=== PATIENT | female | born 1995 | race Caucasian/White ===

== ENCOUNTER 2018-11-14 04:15 | Inpatient (IN) | payer MEDICAID, OTHER ==
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
[2018-11-14 04:59] LABS: PLATELET COUNT 297 10^3/uL (150-400)
--- NOTE | 2018-11-14 13:34 | ASMTTCLDSP ---
TLC Discharge Disposition Disposition: Answers: Admit Disposition Notes: Notes: In consultation with [facility] ED Physician, Chapo Michaels MD and on-call Clinician, Phil Parikh APN both concurred that pt appears to meet 27-65 criteria regarding psychiatric hospitalization as pt appears to be at risk of harm to self due to a mental illness condition. Pt was given the 3N prohibited belongings list while in the ED. Discharge Concerns/Recommendations: Notes[facility] the Answers: Yes Inpatient Behavioral Health Prohibited Belongings List while in the ED? For inpatient Phil Parikh APN admission, the following psychiatrist agreed to accept patient for admission to Behavioral Health ([facility]): Type of Hold: Answers: M1/72-hour Hold Hold initiated by: Answers: Police Date Signed: 11/14/2018 01:34 PM Electronically Signed By:Jackie Guillen
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
[2018-11-14] MEDS ORDERED: NICOTINE POLACRILEX 2 MG GUM B PRN (19:08)
[2018-11-14] MEDS ORDERED: ACETAMINOPHEN 325 MG TAB PO PRN (19:08)
[2018-11-14] MEDS ORDERED: MAGNESIUM HYDROXIDE 30 ML UDCUP PO PRN (19:08)
[2018-11-14] MEDS ORDERED: MAG HYDROX/AL HYDROX/SIMETH 30 ML UDCUP PO PRN (19:09)
[2018-11-14] MEDS ORDERED: LORazepam 0.5 MG TAB PO PRN (19:09)
[2018-11-14] MEDS: MELATONIN 3 MG TAB PO PRN (22:02)
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
[2018-11-15] MEDS: MELATONIN 3 MG TAB PO PRN (21:40)
--- NOTE | 2018-11-16 06:07 | PDMN ---
Medical Necessity Medical necessity: Pt meets INPT criteria per MD and [facility] ( est. LOS >2 MN for substance-induced mood disorder, alcohol-use disorder; M1 hold).
--- NOTE | 2018-11-16 15:20 | ASMTCMCOM ---
CM Note CM Note Notes: The patient completed her safety plan. She is contemplating beginning an SSRI. This automotive service writer and the provider spoke with the patient. She had a list of questions regarding medication. The patient doesn't want to take the same medication that she took in high school because it was not successful. This automotive service writer and the provider encouraged the patient to request her medical records from [place] to learn the medication she hopes to avoid. The patient also reported participating in a modality that she is concerned will interact with medication, although the patient does not know what the type of treatment was or who administered it. She plans to restart services with [facility]. The patient was encouraged to communicate with each of her outpatient providers about the various types of treatment she is receiving as well as her interest and concerns with starting an SRRI. Date Signed: 11/16/2018 03:20 PM Electronically Signed By:Sadie Mistry
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
[2018-11-17 07:05] VITALS: BP 113/79
--- NOTE | 2018-11-17 13:21 | BDS ---
REASON FOR ADMISSION: From the ED note dated 11/14/2018, the patient presents with suicidal ideation. Prior to arrival at the emergency room, the patient asked police inspector to shoot her in the head. The patient was under arrest after being involved in a likely DUI which she was the passenger. Upon being placed under arrest, the patient was very triggered and began to feel suicidal. The patient reported a history of depression and prior suicide attempt as well as history of a mental health hospitalization. The patient reported she has tried to slit her wrist in the past. The patient was admitted involuntarily on an M1 hold due to being a danger to herself. The patient was admitted for safety, crisis stabilization, and medication evaluation. ADMITTING DIAGNOSIS: Major depressive disorder, recurrent episode, severe with anxious distress. ADMISSION PHYSICAL EXAM: The patient was seen for an internal medicine consultation on 11/14/2018, for medical clearance for inpatient psychiatric hospitalization and treatment. The patient was medically cleared for inpatient psychiatric hospitalization and treatment. For further details, please refer to consultation note dated 11/14/2018. ADMISSION LABS: 1. CBC from 11/14/2018, red blood cells were low at 3.76, hemoglobin was low at 10.7, hematocrit was low at 32.2, eosinophils were low at 0.2, absolute eosinophils were low at 0.01. All other within normal limits. 2. Hemoglobin from 11/15/2018, was low at 11.3. 3. BMP from 11/14/2018, within normal limits except sodium was elevated at 147 , chloride was elevated at 115, and glucose was elevated at 109. 4. Liver function from 11/14/2018, within normal limits. 5. Beta hCG qualitative test negative from 11/14/2018. 6. Toxicology screen from 11/14/2018, negative for THC, negative for all other substances screened. Ethyl alcohol level was elevated at 229. MAJOR PROCEDURES OR TESTS: None. HOSPITAL COURSE: The most prominent symptoms and behaviors while the patient was here were reports of moderate anxiety and depression. Treatment modalities utilized were milieu and group therapy. Psychotropic medication options including antidepressants were discussed with the patient including options, risks, and benefits. The patient reports she plans to follow up on an outpatient basis for ongoing medication evaluation and possible treatment with a psychotropic medication. The patient has improved considerably with no signs of psychiatric symptoms and no psychiatric symptoms expressed at time of discharge. Patient reports she has improved since admission. States to be in stable condition, feels safe to discharge and she contracts for safety. Patient 's response to treatment was good. There were no adverse or unexpected results of treatment. The patient was safe throughout her stay, active in treatment, engaged in groups, and was appropriate with staff and other patients. The patient met with the treatment team prior to discharge to assess readiness to discharge and review discharge plan. The treatment team consensus is the patient is in stable condition, has a safe discharge plan, and is ready to discharge today. CONDITION AT DISCHARGE: Patient is in stable condition and is no longer a danger to self or others, and is not gravely disabled due to mental illness. Patient is no longer in need of inpatient level of care, and can be safely and effectively treated within the community. The patients level of risk at time of discharge is low. MSE: The patient is casually dressed and with good hygiene , and looks stated age. Patient is sitting, posture is upright, and position is relaxed. Patient appears awake, alert, and responds appropriately and reasonably during interview. Patient is engaged, relates well to interviewer, and emotional facial expression is appropriate to situation and changes appropriately with topic. Patient is cooperative, makes comfortable eye contact , and movements are voluntary, deliberate, coordinated, and smooth and even with no inappropriate movements. Patient makes laryngeal sounds effortlessly and shares conversation appropriately; pace of conversation is appropriate, and stream of talking is fluent; articulation is clear and understandable; word choice is effortless and appropriate for education level; completes sentences, occasionally pausing to think; rate and volume are appropriate for interview and setting. Patient reports mood as euthymic. Patients affect is stable with full variable range, congruent with mood, and appropriate to speech and circumstances. Patient has linear and logical thinking, with no loose associations, tangential thought, thought blocking, concrete thinking, or any other signs of formal thought disorder. Patient denies suicidal and homicidal ideation, and denies hallucinations and delusions. Patient appears to be a reliable historian with sound judgement and good insight into current condition. Patient has no apparent dysfunction in recent or remote memory noted , and no evidence of gross cognitive dysfunction noted at any point during the interview. DISCHARGE DIAGNOSES: Major depressive disorder, recurrent episode, severe with anxious distress. CURRENT MEDICATIONS: After reviewing options, risks, and benefits with the patient, The patient agrees to follow up on an outpatient basis for ongoing medication evaluation and possibly treatment with a psychotropic medication if indicated. No prescriptions were provided at time of discharge. DISPOSITION: Patient left hospital independently and voluntarily with her mother. FOLLOWUP: employment coordinator reports the appropriate outpatient follow-up services have been established and outpatient appointments have been scheduled. The patient received written instructions with times and dates of outpatient follow-up appointments. The following follow-up recommendations were provided to the patient at discharge: Continue psychotropic medications as prescribed and attend appointments as scheduled. Report any side effects to a psychiatric outpatient provider, a primary care provider, or other health career development director. Address any questions or problems concerning the psychotropic medications with a psychiatric outpatient provider, a primary care provider, or other health career development director. Contact [facility] or [facility], or go to the nearest emergency room, if you are ever a danger to yourself/others, or unable to care for yourself. As soon as possible, establish a routine medication management treatment with a psychiatric provider, establish routine therapy appointments, and follow-up with a primary care provider. LEGAL COURSE: The patient was admitted on an M1 hold for involuntary psychiatric hospitalization. Patient discharged today independently and voluntarily. ATTITUDE AT TIME OF DISCHARGE: The patients attitude was positive at time of discharge, and patient reports looking forward to discharging today. The patient reports she feels safe to discharge, is no longer a danger to herself or others, is in stable condition, and contracts for safety. Patient states she will continue medications as prescribed, and establish medication management treatment with an outpatient provider after discharge. Patient reports she understands the information that has been provided to her, and she understands, accepts, and agrees to psychotropic medications. Patient describes internal protective factors as the coping skills she has learned while hospitalized here, and she plans to continue to practice these coping skills after discharge. LABS AND STUDIES: There were no pending labs or studies at time of discharge. ADVANCE DIRECTIVES: There were no advance directives on file, and patient was full code during this hospitalization. The following psychotropic medication treatment informed consent and recommendations were provided to the patient at time of discharge. Patient reports she understands, accepts, and agrees to the information that has been provided. PSYCHOTROPIC MEDICATION TREATMENT INFORMED CONSENT and RECOMMENDATIONS: Review nature of condition, diagnosis, and prognosis. Review nature and purpose of psychotropic medication treatment. Review type of psychotropic medications being prescribed. Review risk and benefits of psychotropic medication treatment. Review probable length of time will need to take medications. Review risk and benefits of not undergoing psychotropic medication treatment. Review alternative treatments to psychotropic medications. Review psychotropic medications contraindications, side effects, and importance of reporting any side effects to a psychiatric provider, primary care provider, or other health career development director. Review importance of her asking a psychiatric provider or primary care provider any questions or problems concerning the psychotropic medications. Review importance of reporting to a psychiatric provider, primary care provider, or other health career development director if she plans to or becomes . Review safety plan and the importance to contact [facility] or [facility] , or go to the nearest emergency room, if ever a danger to yourself/others, or unable to care for yourself. Recommend upon discharge to establish routine medication management treatment with a psychiatric provider, establish routine therapy appointments, and follow-up with a primary care provider. Verify patient understands, accepts, and agrees to the information that has been provided. /[id number]
== END 2018-11-17 12:20 | disposition home or self-care (01) | DRG 897 ==
LOC: EEVIPCON 04:15 → BBEH 18:00
PROVIDERS: ADMIT Registered Nurse; ATTEND Psychiatry & Neurology Psychiatry
DX: F10.24 Alcohol dependence with alcohol-induced mood disorder (principal); R45.851 Suicidal ideations; F32.9 Major depressive disorder, single episode, unspecified; F41.9 Anxiety disorder, unspecified; D64.9 Anemia, unspecified; E87.0 Hyperosmolality and hypernatremia
CPT/HCPCS: 80305; G0480